=== PATIENT | female | born 1990 ===

== ENCOUNTER 2018-12-23 07:23 | Inpatient (IN) | payer BC ==
[2018-12-23 08:22] VITALS: BMI 26.5
[2018-12-23] MEDS: Lactated Ringer's 1,000 ML IV SCH ×2 (08:45→09:45)
--- NOTE | 2018-12-23 08:53 | OBADHP ---
Datetime: 12/23/2018 08:45 IP Chief Complaint Other: previis c/s Admit Comment, IP Provider: at 38+weks here c/o cts started last nigh, irrg 11/18,no vb, lof+fm. pt req obhx 1 c/s pmhh en med pnv all nkda psh c/s sicgh de ve /-2 a/p at 38+weks here previous c/s inpain admit to l_d npo/ivf labs cont dora and efm antheseai aware consent Pelvic Type - PN: Adequate Extremities - PN: Normal Abdomen - PN: Normal Back - PN: Normal Breast - PN: Normal Lungs - PN: Normal Heart - PN: Normal Thyroid - PN: Normal Neurologic - PN: Normal HEENT - PN: Normal General - PN: Normal FHR - Baseline A Provider: 130 Contraction Comments Provider: q1-4 IP Hx Assessment: The History has been Reviewed and is Current Vital Signs Provider: Reviewed; Within Normal Limits IP Chief Complaint: Uterine contractions NICHD Variability Prov Fetus A: Moderate 6-25bpm NICHD Accel Fetus A IP Provider: 15X15 FHR Category Provider Fetus A: Category I Dilatation, Provider: 3 Effacement, Provider: 70 Station, Provider: -2 Genitourinary Exam: Normal DTRs - PN: Normal EGA AdmitDate IP: 38.4 IP Adm Impression: Term, intrauterine ; Active labor IP Admit Plan: Admit to unit; Initiate protocol
[2018-12-23] MEDS ORDERED: cefOXitin IV 2 gm in Dextrose 2 GM/50 ML BAG IVPB SCH (09:00)
[2018-12-23 09:11] LABS: BASO % 0.2 % (0.0-2.0); EOS % 0.3 % (0.0-4.0); HEMOGLOBIN 13.7 g/dL (11.0-16.0); LYMPH # 1.4 K/uL (1.0-4.3); LYMPH % 15.4 % (20.0-40.0); MEAN CORPUSCULAR HEMOGLOBIN 28.8 pg (27.0-31.0); MEAN CORPUSCULAR HGB CONC 33.9 g/dL (33.0-37.0); MEAN PLATELET VOLUME 10.7 fL (7.2-11.7); MONO # 0.4 K/uL (0.0-0.8); MONO % 4.4 % (0.0-10.0); NEUT # 7.4 K/uL (1.8-7.0); NEUT % 79.7 % (50.0-75.0); NRBC % 0.1 % (0.0-2.0); RBC 4.73 Mil/uL (3.80-5.20); RED CELL DISTRIBUTION WIDTH 15.5 % (11.5-14.5); WHITE BLOOD COUNT 9.3 K/uL (4.8-10.8)
[2018-12-23 09:19] LABS: SQUAMOUS EPITHIAL 5 /hpf (0-5); URINE BACTERIA RARE (<OCC); URINE BILIRUBIN NEGATIVE (NEGATIVE); URINE BLOOD NEGATIVE (NEGATIVE); URINE CLARITY Hazy (Clear); URINE COLOR Yellow (YELLOW); URINE GLUCOSE (UA) NORMAL (Normal); URINE LEUKOCYTE ESTERASE NEG Leu/uL (Negative); URINE PROTEIN NEGATIVE (NEGATIVE); URINE UROBILINOGEN NORMAL mg/dL (0.2-1.0)
[2018-12-23 09:25] LABS: ALB/GLOB RATIO 1.2 (1.0-2.1); ALBUMIN 3.9 g/dL (3.5-5.0); ALT/SGPT 21 U/L (9-52); AST/SGOT 26 U/L (14-36); BLOOD UREA NITROGEN 6 mg/dL (7-17); GFR NON-AFRICAN AMERICAN > 60
[2018-12-23 09:59] LABS: HEPATITIS B SURFACE AG Negative (NEGATIVE)
[2018-12-23] MEDS ORDERED: Fentanyl/Bupivacaine HCl 250 ML EPI ONE (10:12)
--- NOTE | 2018-12-23 10:34 | OBPN ---
Datetime: 12/23/2018 10:29 IP Procedures: Artificial ROM; Sterile Vag Exam IP Progress Plan: Continue present management FHR - Baseline A Provider: 130 IP Progress Note Comment: pt was examined at bed side aROM ALESSANDRO SARABIA /.-2 PLAN EPOIDURAL START PIT ANTICIPATE VASGINAL Vital Signs Provider: Reviewed; Within Normal Limits NICHD Accel Fetus A IP Provider: 15X15 FHR Category Provider Fetus A: Category I NICHD Variability Prov Fetus A: Moderate 6-25bpm Dilatation, Provider: 4 Effacement, Provider: 70 Station, Provider: -2 Datetime: 12/23/2018 08:45 Contraction Comments Provider: q1-4
[2018-12-23] MEDS ORDERED: Oxytocin 30 UNIT in NS 500 ml 30 UNITS/500 ML BAG IV ONE (10:35)
[2018-12-23] MEDS ORDERED: cefOXitin IV 2 gm in Dextrose 0 GM/0 ML BAG IVPB ONE (13:52)
[2018-12-23] MEDS ORDERED: Sodium Citrate/Citric Acid 15 ml Sol ONE (13:52)
[2018-12-23] MEDS ORDERED: Oxytocin 10 Units/ml Inj ONE (13:53)
[2018-12-23] MEDS ORDERED: Oxycodone/Acetaminophen 5/325 mg Tab PO PRN (15:34)
--- NOTE | 2018-12-23 15:36 | OBDS ---
DELIVERY PERSONNEL Delivery Doctor: Chin Casey MD Anesthesiologist: Marck, N. MD MATERNAL INFORMATION Delivery Anesthesia: Epidural Provider Comments: dr casey private baby deliverd in [facility] end clean 9/9 cord gas no com LABOR SUMMARY EDC: 01/02/2019 00:00 LABOR INFORMATION Group B Beta Strep: Negative MEMBRANES Membranes Rupture Method: Artificial Rupture of Membranes: 12/23/2018 08:35 Amniotic Fluid Color: Clear Amniotic Fluid Amount: Moderate Amniotic Fluid Odor: None VAGINAL DELIVERY Episiotomy: Right Mediolateral Laceration Extension: N/A Laceration Type: None Laceration Repair Note: repaired Sponge Count Correct: Yes Sharps Count Correct: Yes BABY A INFORMATION Born in Route : No Forceps: N/A PRESENTATION/POSITION BABY A Presentation: Cephalic Cephalic Presentation: Vertex Vertex Position: Left Occipital Anterior Breech Presentation: N/A PLACENTA INFORMATION BABY A Placenta Method of Delivery: Spontaneous Placenta Status: Delivered INFANT INFORMATION BABY A Gestational Age at Delivery: 38.4 Gestational Status: Term IDENTIFICATION/MEDS BABY A ID Band Number: [id number] Sensor Number: [id number] Sensor Location : Cord Clamp CORD INFORMATION BABY A Nuchal Cord : N/A
[2018-12-23] MEDS: Benzocaine/Menthol 20%-0.5% Topical Spray (60 ml) TOP PRN (17:36)
--- NOTE | 2018-12-24 06:08 | OBPPN ---
Datetime: 12/24/2018 06:05 PP Pain Prov: Within normal limits PP Nausea Prov: Denies PP Flatus Prov: Yes PP Abdomen/Uterus Prov: Normal PP Lochia Prov: Normal PP Extremities Prov: Normal PP Impression Prov: Normal progression PP Plan Prov: Continue present management PP Progress Note Prov: pt was seen at bed marshall, pain undr coibtreol,no mn/v, tolerating deit deit, vo iding, min lochia, fla+ ppd#1 cont pp care cont pain ma encourage ambu;l Vital Signs Provider PP: Reviewed; Within Normal Limits
[2018-12-24] MEDS ORDERED: Tdap Vaccine 0.5 ml Vial (10-64 yrs) IM ONE (06:49)
[2018-12-24 08:16] LABS: BASO % 0.2 % (0.0-2.0); EOS % 0.4 % (0.0-4.0); LYMPH # 1.4 K/uL (1.0-4.3); LYMPH % 13.6 % (20.0-40.0); MEAN CELL VOLUME 84.3 fL (81.0-99.0); MEAN CORPUSCULAR HEMOGLOBIN 29.2 pg (27.0-31.0); MEAN CORPUSCULAR HGB CONC 34.6 g/dL (33.0-37.0); MEAN PLATELET VOLUME 11.2 fL (7.2-11.7); MONO # 0.5 K/uL (0.0-0.8); MONO % 4.9 % (0.0-10.0); NEUT # 8.3 K/uL (1.8-7.0); NEUT % 80.9 % (50.0-75.0); RBC 3.71 Mil/uL (3.80-5.20); RED CELL DISTRIBUTION WIDTH 15.4 % (11.5-14.5); WHITE BLOOD COUNT 10.3 K/uL (4.8-10.8)
[2018-12-24 08:34] LABS: HEMOGLOBIN 10.8 g/dL (11.0-16.0)
[2018-12-24 16:38] VITALS: RESP 18
[2018-12-24] MEDS: Benzocaine/Menthol 20%-0.5% Topical Spray (60 ml) TOP PRN (17:32)
[2018-12-25 20:14] VITALS: BP 108/70; PULSE 100; TEMP 97.6; O2SAT 100
== END 2018-12-25 14:30 | disposition home or self-care (01) | DRG 807 ==
LOC: C.EROB 07:23 → C.4D 08:25 → C.4M 17:00
PROVIDERS: ADMIT Obstetrics & Gynecology; ATTEND Obstetrics & Gynecology
PROC: 0W8NXZZ Division of Female Perineum, External Approach (ICD-10-PCS; principal; 2018-12-23)
PROC: 10E0XZZ Delivery of Products of Conception, External Approach (ICD-10-PCS; 2018-12-23)
DX: O34.219 Maternal care for unspecified type scar from previous cesarean delivery (principal); Z37.0 Single live birth; Z3A.38 38 weeks gestation of pregnancy